=== PATIENT | male | born 1975 | race Caucasian/White ===

== ENCOUNTER 2016-10-08 06:48 | Day surgery (SDC) | payer BC ==
[2016-10-06 12:56] LABS: HEMATOCRIT 46.4 % (40.0-51.0); HEMOGLOBIN 15.8 g/dL (13.6-17.8)
[2016-10-06 13:08] LABS: BUN (BLOOD UREA NITROGEN) 11 MG/DL (6-23); CALCIUM, SERUM 11.5 MG/DL (8.5-10.4); CHLORIDE, SERUM 108 MMOL/L (96-112); CO2 (CARBON DIOXIDE) 27 MMOL/L (24-34); CREATININE 0.73 MG/DL (0.70-1.30); GFR AFRICAN AMERICAN 134 ML/MIN (>=60); GFR NON AFRICAN AMERICAN 116 ML/MIN (>=60); GLUCOSE, SERUM 79 MG/DL (60-99); POTASSIUM, SERUM 4.9 MMOL/L (3.5-5.3); SODIUM, SERUM 143 MMOL/L (135-148)
--- NOTE | ~2016-10-08 | OP ---
Record Of Operation [facility] [address] [place]. [address] NAME: CEASAR OSEI JR : 77 STATUS : [facility]#: [id number] AGE: 41 ADM/REG DATE : 10/08/16 MR#: [id number] REPORT SERV DATE: 10/08/16 DICTATED BY: HAILE KHAN DATE: 10/08/16 REPORT STATUS : Draft TRANSCRIBED BY: MODJuan Jose DATE: 10/08/16 DATE OF PROCEDURE: 10/08/2016 PREOPERATIVE DIAGNOSIS: Hyperparathyroidism with right inferior parathyroid adenoma. POSTOPERATIVE DIAGNOSIS: Hyperparathyroidism with right inferior parathyroid adenoma. PROCEDURE: A neck exploration with removal of the right inferior parathyroid adenoma with intraoperative nerve monitoring of the right recurrent laryngeal nerve. SURGEON: Haile Khan M.D. ANESTHESIA: General endotracheal. ESTIMATED BLOOD LOSS: 30 mL. INTRAOPERATIVE FLUIDS: 1300 mL crystalloid. INTRAOPERATIVE FINDINGS: Large parathyroid adenoma measuring approximately 2 cm in diameter below the inferior aspect of the right lobe of the thyroid gland. Despite the position consistent with a right inferior parathyroid adenoma, the tumor was lying deep to the recurrent laryngeal nerve. Due to the patient's extremely short neck and inability to extend his neck, access to this area was difficult. The entire dissection had to be performed from the superior aspect, as it could not be approached inferiorly due to the presence of the clavicle. The recurrent laryngeal nerve was identified early in the dissection and stimulated well at the start of the procedure. 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 OPERATIVE PROCEDURE: The patient was identified in the holding room and transported to the operating room. In the operating room, the patient was placed on the operating room table in the supine position. Following induction of anesthesia, the patient was intubated without difficulty. The patient was intubated with an endotracheal tube to accommodate the NIM-2 stimulator. A proposed incision was diagrammed in a lower neck skin crease. With the inability to extend the patient's neck, the incision was made immediately above the level of the clavicles with the apparent low-lying thyroid gland. The area was then injected with 1% lidocaine with 1:100,000 epinephrine. The patient was prepped and draped in a sterile fashion. An incision was created through the aforementioned area of the neck. The initial incision measured approximately 3 cm in diameter; however, with difficulty in visualizing the parathyroid adenoma given its deep position in the neck, I did increase the size of the incision approximately 1 cm on both sides to facilitate access. Superior and inferior subplatysmal flaps were developed. A fat pad was removed from the area overlying the thyroid gland to facilitate visualization. The strap muscles were identified and in the midline and retracted laterally for exposure of the thyroid gland. With finger dissection, a mass appearing approximately the size of the described parathyroid adenoma approximately 2 cm in diameter, was palpable inferior to the right lobe of the thyroid Record Of Operation [facility] [address] [place]. [address] NAME: CEASAR OSEI : 77 STATUS : [facility]#: [id number] AGE: 41 ADM/REG DATE : 10/08/16 MR#: [id number] REPORT SERV DATE: 10/08/16 DICTATED BY: HAILE KHAN DATE: 10/08/16 REPORT STATUS : Draft TRANSCRIBED BY: MARTINA DATE: 10/08/16 gland. A cricoid hook was used initially to elevate the cricoid cartilage and facilitate dissection. The parathyroid adenoma was identified. On dissecting around the parathyroid gland, the recurrent laryngeal nerve was identified. The parathyroid tumor was lying deep to the recurrent laryngeal nerve on the right side. Due to the deep location and the patient's neck, the dissection had to be performed completely from a superior approach as I was unable to access the adenoma from an inferior approach due to the presence of the clavicle. Given the relatively large size of the parathyroid tumor and its position in the neck, as the dissection proceeded, the capsule of the adenoma ruptured and the adenoma was removed piecemeal. Tissue was sent to Pathology for histologic evaluation confirming the presence of a hyperplastic parathyroid gland. Extensive dissection was required to permit removal of the parathyroid adenoma given attachment to surrounding soft tissues. I was, however, able to remove the adenoma in its entirety with no residual adenoma identified within the operative bed. Prior to dissecting the parathyroid adenoma, the recurrent laryngeal nerve did stimulate well inferiorly. Following removal of the adenoma, I was unable to stimulate the nerve at the inferior aspect; however, the nerve was visibly intact and was stimulated at the upper end of the dissection. As this appears to be a neurapraxia, no further intervention was undertaken at this point. Hemostasis was achieved with the use of the bipolar cautery. With no significant residual bleeding identified, Surgiflo was placed into the operative bed. The platysmal layer was then closed with interrupted buried 3-0 Vicryl suture. A running 5-0 Prolene suture was then placed in a subcuticular fashion for skin closure. Steri-Strips were applied to the wound. Approximately 15 minutes after removal of the parathyroid adenoma, a postoperative PTH level was obtained. The initial PTH level was 446 with the post removal level being 38.4. At this point, the patient was awakened from anesthesia, extubated in the operating room, and transported to the recovery room in good condition. The patient tolerated the procedure well. There were no apparent complications. SPECIMENS: Include: 1. Possible parathyroid tissue. 2. Right inferior parathyroid adenoma. TF/MARCOSL Haile Khan M.D. / [id number] CC: Leigh Gomes D.O. F.A.C.P.
[~2016-10-08 06:48] MED LIST: *DENIES; LOP25 PO
[2016-10-08 09:39] LABS: PTH (INTRAOPERATIVE) 445.9 PG/ML (10.0-65.0); PTH TAT 0 Hrs 00 Mins
[2016-10-08 12:06] LABS: PTH (INTRAOPERATIVE) 38.4 PG/ML (10.0-65.0); PTH TAT 0 Hrs 00 Mins
== END 2016-10-08 17:02 | disposition home or self-care (01) ==
LOC: SDC 06:48
PROVIDERS: Otolaryngology
PROC: 0GBN0ZZ Excision of Right Inferior Parathyroid Gland, Open Approach (ICD-10-PCS; principal; 2016-10-08 08:30)
DX: D35.1 Benign neoplasm of parathyroid gland (principal); E21.2 Other hyperparathyroidism; E66.01 Morbid (severe) obesity due to excess calories; Z68.42 Body mass index [BMI] 45.0-49.9, adult; Z79.899 Other long term (current) drug therapy
CPT/HCPCS: 80048; 83970; 85014; 85018; 88305; 88313; 88331; 88341; 88342; 93005; A9270-GY; J0690; J2250; J2405; J2550; J2710; J3010